=== PATIENT | female | born 1970 | race Caucasian/White ===

== ENCOUNTER 2019-04-12 15:11 | Emergency (ER) | payer OTHER ==
[~2019-04-12] VITALS: Ht 165.1 cm; Wt 123.6 kg
[2019-04-12 15:28] VITALS: Ht 165.1 cm; Wt 123.6 kg
[2019-04-12 17:23] VITALS: BP 120/71
== END 2019-04-12 17:23 | disposition home or self-care (01) ==
LOC: ED 15:11
DX: J40 Bronchitis, not specified as acute or chronic (principal); Z90.89 Acquired absence of other organs; Z98.890 Other specified postprocedural states
CPT/HCPCS: J1100